=== PATIENT | male | born 1995 | race African-American/Black ===

== ENCOUNTER 2016-11-03 08:18 | Emergency (ER) | payer OTHER ==
[2016-11-03 08:24] VITALS: BP 134/90; PULSE 79; TEMP 98; BMI 26.7
[2016-11-03] MEDS ORDERED: IBUPROFEN 400 MG TABLET (FP) PO ONE (08:32)
[2016-11-03] MEDS ORDERED: IBUPROFEN 600 MG TABLET (FP) PO ONE (08:35)
--- NOTE | 2016-11-03 08:37 | PDOC ---
History of Present Illness - General Chief Complaint: Injury Stated Complaint: LEFT KNEE PAIN Time Seen by Provider: 11/03/16 08:20 History Source: Patient Exam Limitations: No Limitations - History of Present Illness Initial Comments: 11/03/16 08:33 21y M hx of several knee surgeries presents with L knee pain. The patient states that as he was going up the stairs this morning, he felt his L knee 'roll ' around with immediate pain. The pt states he fell backwards but didnt hurt himself without head injury, LOC, neck pain, back pain. Pt denies any numnbess/ tingling/weakness. Pt states his knee hurts at rest, ambulating and when bending it. No radiation of pain. PMD: Mayito Past History - Past Medical History Allergies/Adverse Reactions: Allergies Allergy/AdvReac Type Severity Reaction Status Date / Time No Known Allergies Allergy Verified 11/03/16 08:19 Home Medications: Ambulatory Orders NK [No Known Home Medication] 11/03/16 Other medical history: DENIES - Psycho/Social/Smoking Cessation Hx Anxiety: No Suicidal Ideation: No Smoking History: Never smoked Have you smoked in the past 12 months: No Information on smoking cessation initiated: No Hx Alcohol Use: No Drug/Substance Use Hx: No Substance Use Type: None Review of Systems - Review of Systems Able to Perform ROS?: Yes Comments:: 11/03/16 08:34 Constitutional - no reported Fever, Chills, Musculskelatal - +knee pain no reported back pain, joint swelling skin - no reported bruising, erythema, rash neurological: no reported headache, numbness, focal weakness, tingling, hematologic: no reported anemia, easy bruising, easy bleeding *Physical Exam - Vital Signs Last Vital Signs Temp Pulse Resp BP Pulse Ox 98 F 79 20 134/90 99 11/03/16 08:19 11/03/16 08:19 11/03/16 08:19 11/03/16 08:19 11/03/16 08:19 - Physical Exam Comments: 11/03/16 08:37 GENERAL: The patient is awake, alert, and fully oriented, Nontoxic - in no acute distress. HEAD: Normocephalic, atraumatic. EXTREMITIES: no focal bony tenderness mild tenderness to lateral aspects of knee no bruising/ecchymosis, skin breakdown +laxity on anterior drawer no pain/laxity on valgus/varus stress, no laxity noted on posterior drawer no lmitation of ROM on L hip, L foot SKIN: Warm, Dry, normal turgor, Medical Decision Making - Medical Decision Making 11/03/16 08:39 suspect ligamentous strain atraumatic, no bony tenderness, do no tfeel xray will be helpful will refer to ortho/pmd pt placed in knee immobilizer and crutches NSAIDS, Rest, elevat return precautions were discussed I discussed the physical exam findings, ancillary test results and final diagnoses with the patient. I answered all of the patient's questions. The patient was satisfied with the care received and felt comfortable with the discharge plan and treatment plan. The patient will call their primary care physician within 24 hours to arrange follow-up and will return to the Emergency Department with any new, persistent or worsening symptoms. *DC/Admit/Observation/Transfer Diagnosis at time of Disposition: Strain of knee Qualifiers: Encounter type: initial encounter Laterality: left Qualified Code(s): S86.912A - Strain of unspecified muscle(s) and tendon(s) at lower leg level, left leg, initial encounter - Discharge Dispostion Disposition: HOME Condition at time of disposition: Stable Admit: No - Referrals Referrals: Kaci Edmond MD [Staff Physician] - Jefe Beverly MD [Staff Physician] - - Patient Instructions Printed Discharge Instructions: DI for Knee Sprain Additional Instructions: Return to the emergency department immediately with ANY new, persistent or worsening symptoms. Avoid any strenous activity (such as basketball) and work especially if you will be in a position where you will be in danger until you follow up with your doctor. KEep your leg elevated and use an ice pack to mnimize swelling. Take ibuprofen (600mg three times daily) for pain. You MUST call and follow up with your primary care doctor and orthopedic surgeon in 3-4 days for further evaluation of your symptoms. Results were discussed with you. Please make sure your doctor reviews the results of your emergency evaluation. - Post Discharge Activity Work/School Note: Back to Work
== END 2016-11-03 08:50 | disposition home or self-care (01) ==
LOC: FER 08:18
DX: S86.912A Strain of unspecified muscle(s) and tendon(s) at lower leg level, left leg, initial encounter (principal); W10.9XXA Fall (on) (from) unspecified stairs and steps, initial encounter; Y93.89 Activity, other specified; Y92.9 Unspecified place or not applicable
CPT/HCPCS: 99282-25

== ENCOUNTER 2017-06-19 05:52 | Day surgery (SDC) | payer OTHER ==
[2017-06-18 09:56] VITALS: BMI 26.0
[2017-06-19] MEDS ORDERED: MIDAZOLAM HCL 2 MG/2 ML SINGLE DOSE VIAL ONE (06:42)
[2017-06-19] MEDS ORDERED: DEXAMETHASONE SOD PHOSPHATE/PF 10 MG/ML SDV ONE (06:42)
[2017-06-19] MEDS ORDERED: BUPIVACAINE HCL/PF (5 MG/ML) 30 ML VIAL IJ ONE (06:43)
[2017-06-19] MEDS ORDERED: PROPOFOL 20 ML ONE ×2 (07:02)
[2017-06-19] MEDS ORDERED: ceFAZolin SODIUM 1 GM VIAL ONE (08:14)
[2017-06-19] MEDS ORDERED: DEXAMETHASONE SOD PHOSPHATE 4 MG/1 ML VIAL ONE (08:14)
[2017-06-19] MEDS ORDERED: ONDANSETRON 4 MG/2 ML VIAL ONE ×2 (08:14→09:28)
[2017-06-19] MEDS ORDERED: oxyCODONE HCL 5 MG TABLET PO PRN (08:54)
[2017-06-19] MEDS ORDERED: ONDANSETRON 4 MG/2 ML VIAL IVPUSH PRN (08:54)
[2017-06-19] MEDS ORDERED: EPINEPHrine 1:1,000 1 MG/1 ML - 30ML VIAL (INJECTION) ONE (08:56)
[2017-06-19] MEDS ORDERED: LACTATED RINGERS SOLUTION 1,000 ML IV SCH (09:00)
[2017-06-19 11:42] VITALS: TEMP 97.4
[2017-06-19] MEDS ORDERED: oxyCODONE HCL 5 MG TABLET ONE (11:46)
[2017-06-19 12:20] VITALS: BP 132/62; PULSE 82
--- NOTE | 2017-06-21 23:43 | OP ---
DATE OF OPERATION: 06/19/2017 SURGEON: Tristian Vasquez MD FISH BUTCHER: BIBI Eastman PREOPERATIVE DIAGNOSIS: 1. Left knee anterior cruciate ligament tear. 2. Left knee mediolateral meniscal tear. 3. Left knee cartilage injury. 4. Left knee synovitis. POSTOPERATIVE DIAGNOSIS: 1. Left knee anterior cruciate ligament tear. 2. Left knee mediolateral meniscal tear. 3. Left knee cartilage injury. 4. Left knee synovitis. PROCEDURE: 1. Left knee arthroscopy with anterior cruciate ligament reconstruction using allograft, CPT code 80475. 2. Left knee arthroscopy with partial meniscectomy of mediolateral meniscus, CPT code 00960. 3. Left knee arthroscopy with chondroplasty, CPT code 52828. 4. Left knee arthroscopy with synovectomy including removal of medial plica, CPT code 23433. FINDINGS: 1. Medial meniscus body and posterior horn tear, minor. 2. Lateral meniscus posterior horn tear, central one-third, midbody to posterior horn. 3. Synovitis of patellofemoral and mediolateral notch. 4. Cartilage injury to the mediolateral joint. 5. Complete tear of the ACL. 6. Antegrade 1-2 cartilage injury to the lateral joint line. 7. Antegrade 2 cartilage injury to the lateral facet of patella. PROCEDURE: Informed consent was obtained. The patient came to the operating room, where the lower extremity was prepped and draped in a sterile fashion. A tourniquet was placed on the upper thigh, but not inflated. Using standard arthroscopic technique, a lateral incision and portal was made to allow for introduction of the camera into the suprapatellar bursa. This was then taken to the medial joint line, where under direct visualization, a medial incision and portal was made. Excessive synovium noted in the medial, lateral and patellofemoral and notch area was removed by an up-biter, shaver and Bovie cautery. This was found to bring in inflammatory tissue into the joint surface, a source of pain and dysfunction. Probing of the medial and lateral meniscus found tears, as described in the findings. These were removed with the up-biter and shaver and taken back to a stable rim. Grade 2 to 3 degenerative changes were treated with a chondroplasty, removing all flaking surfaces with low-setting Bovie along the periphery to prevent further flaking. Grade 4 changes, as noted, were treated with an abrasioplasty, creating a bleeding surface at the bone/cartilage interface. Aggressive debridement with shaver/yaneth created bleeding surface. Microfracture also done when indicated in findings Patient had a complete tear of the anterior cruciate ligament. Remnants of the ACL were removed and a lateral notchplasty was performed on the lateral femoral wall using a bur. Allograft was prepared on the back table and found to have good strength and tissue quality. Anteromedial incision was made on the anterior tibia, corresponding to the ACL inside-out graft. Incision was made in the anteromedial tibia followed by a beef needle to a central portion of the joint and a 10-mm reamer. Knee was flexed 90 degrees. The [id number] position was identified along the femur. A beef needle was placed through the anterior femur. This was followed by a 10-mm to a depth of 35 mm. The graft was passed through the tibial and femoral sites and was secured on the femoral side using an 8-mm x 25-mm metal interference screw. The knee was taken through range of motion. The graft had isometric positioning and no evidence of impingement. The knee was extended and posterior drawer was placed. A tibial screw, 9-mm x 20-mm metal interference screw, was placed. Camera was reintroduced in the knee. All loose debris was removed. ACL graft was found to have no evidence of impingement. Good positioning and good tension. All areas of the knee were once again reexamined. The knee was then drained and a single suture was placed in all portals in layered closure with 0 Vicryl, 2-0 Vicryl, and a 3-0 Prolene was used on the medial incision. A sterile dressing was placed and a splint was placed. The patient was transferred to the recovery room without complication. TRISTIAN VASQUEZ M.D. [id number]
== END 2017-06-19 12:23 | disposition home or self-care (01) ==
LOC: FASU 05:52
PROVIDERS: ATTEND Orthopaedic Surgery
PROC: 0SBD4ZZ Excision of Left Knee Joint, Percutaneous Endoscopic Approach (ICD-10-PCS; 2017-06-19)
PROC: 0SBD4ZZ Excision of Left Knee Joint, Percutaneous Endoscopic Approach (ICD-10-PCS; 2017-06-19)
PROC: 0SBD4ZZ Excision of Left Knee Joint, Percutaneous Endoscopic Approach (ICD-10-PCS; 2017-06-19)
PROC: 0MRP47Z Replacement of Left Knee Bursa and Ligament with Autologous Tissue Substitute, Percutaneous Endoscopic Approach (ICD-10-PCS; principal; 2017-06-19 07:30)
DX: S83.512A Sprain of anterior cruciate ligament of left knee, initial encounter (principal); S83.242A Other tear of medial meniscus, current injury, left knee, initial encounter; S83.282A Other tear of lateral meniscus, current injury, left knee, initial encounter; S83.8X2A Sprain of other specified parts of left knee, initial encounter; M65.862 Other synovitis and tenosynovitis, left lower leg; X58.XXXA Exposure to other specified factors, initial encounter; Y93.9 Activity, unspecified; Y92.9 Unspecified place or not applicable
CPT/HCPCS: 94760

== ENCOUNTER 2019-04-10 00:29 | Emergency (ER) | payer BC, OTHER ==
[2019-04-10 00:39] VITALS: TEMP 100.3; BMI 25.7
[2019-04-10] MEDS ORDERED: KETOROLAC TROMETHAMINE 30 MG/1 ML VIAL ONE (01:12)
[2019-04-10] MEDS ORDERED: KETOROLAC TROMETHAMINE 30 MG/1 ML VIAL IVPUSH ONE (01:18)
[2019-04-10] MEDS ORDERED: SODIUM CHLORIDE 0.9% 500 ML INFUS.BAG IV ONE ×2 (01:18→05:52)
[2019-04-10 01:58] LABS: BASO % 0.2 % (0-2.0); HEMATOCRIT 43.7 % (35.4-49); HEMOGLOBIN 14.7 GM/dL (11.7-16.9); MCH 29.1 pg (25.7-33.7); MCHC 33.5 g/dl (32.0-35.9); MEAN CELL VOLUME 86.6 fl (80-96); MEAN PLT VOLUME 10.4 fl (7.5-11.1); MONO % 11.2 % (3.8-10.2); NEUT % 85.6 % (42.8-82.8); PLATELET COUNT 171 K/MM3 (134-434); RBC 5.04 M/mm3 (4.00-5.60); RDW 12.6 % (11.9-15.9)
[2019-04-10 02:21] LABS: ALBUMIN 4.7 g/dl (3.4-5.0); BILIRUBIN,TOTAL 0.6 mg/dL (0.2-1); BLOOD UREA NITROGEN 12.3 mg/dL (7-18); CALCIUM 9.9 mg/dL (8.5-10.1); CREATININE 1.2 mg/dL (0.55-1.3); POTASSIUM 3.2 mmol/L (3.5-5.1); TOT PROT 7.6 g/dl (6.4-8.2)
[2019-04-10] MEDS ORDERED: MAGNESIUM SULF 50% (8.12 MEQ/2 ML-1 GM VIAL) IVPB ONE (02:25)
[2019-04-10] MEDS ORDERED: POTASSIUM CHLORIDE TABS 20 MEQ TABLET.ER (FP) PO ONE ×2 (02:25→02:37)
[2019-04-10] MEDS ORDERED: MAGNESIUM 1GM/D5W - 2 GM/200 ML IVPB IVPB ONE (02:37)
--- NOTE | 2019-04-10 03:22 | PDOC ---
Documentation entered by Roxie Arriola SCRIBE, acting as scribe for Isabelle Bryant MD. Isabelle Bryant MD: This documentation has been prepared by the Zeinab miller Nirvannie, SCRIBE, under my direction and personally reviewed by me in its entirety. I confirm that the documentation accurately reflects all work, treatment, procedures, and medical decision making performed by me. History of Present Illness - General Chief Complaint: Back Pain Stated Complaint: BACK PAIN Time Seen by Provider: 04/10/19 01:02 History Source: Patient Exam Limitations: No Limitations - History of Present Illness Initial Comments: 04/10/19 01:32 The patient is a 24 year old male, with no significant past medical history, who presents to the emergency department with 10/10 band-like back pain worsened with passive and active movements, nausea, vomiting, and concentrated urine. As per patients mother at bedside, he was diagnosed earlier today at Urgent Care with a URI and discharged on Cyclobenzaprine 5mg, Ibuprofen 650mg, and Benzonatate 200mg. Patients mother notes when ambulating he walks stiff secondary to pain, prompting his arrival to the ED. Mother notes, he has associated nausea, vomiting, cough, and decreased PO intake. He denies any recent fevers, chills, headache or dizziness. He denies any recent chest pain or shortness of breath. He denies any recent dysuria, frequency, urgency or hematuria. Allergies: NKDA Past History - Past Medical History Allergies/Adverse Reactions: Allergies Allergy/AdvReac Type Severity Reaction Status Date / Time No Known Allergies Allergy Verified 04/10/19 00:52 Home Medications: Ambulatory Orders Ibuprofen 600 mg PO Q8H PRN 04/10/19 Sulfamethoxazole/Trimethoprim [Bactrim Ds -] 1 tab PO BID #14 tablet 04/10/19 Anemia: No Asthma: No Cancer: No Cardiac Disorders: No CVA: No COPD: No CHF: No Dementia: No Diabetes: No GI Disorders: No Disorders: No HTN: No Hypercholesterolemia: No Liver Disease: No Seizures: No Thyroid Disease: No - Surgical History Abdominal Surgery: No Appendectomy: No Cardiac Surgery: No Cholecystectomy: No Lung Surgery: No Neurologic Surgery: No Orthopedic Surgery: Yes (LEFT KNEE 02/2014) - Psycho Social/Smoking Cessation Hx Smoking History: Never smoked Have you smoked in the past 12 months: Yes Number of Cigarettes Smoked Daily: 0 If you are a former smoker, when did you quit?: SMOKES OCCASIONAL MARIJUANA Hx Alcohol Use: No Drug/Substance Use Hx: No Substance Use Type: Marijuana Hx Substance Use Treatment: No Review of Systems - Review of Systems Able to Perform ROS?: Yes Comments:: 04/10/19 01:33 GENERAL/CONSTITUTIONAL: No fever or chills. No weakness. HEAD, EYES, EARS, NOSE AND THROAT: No change in vision. No ear pain or discharge. No sore throat. CARDIOVASCULAR: No chest pain or shortness of breath. RESPIRATORY: +Cough. No wheezing, or hemoptysis. GASTROINTESTINAL: +Nausea. +Vomiting. No diarrhea or constipation. GENITOURINARY: No dysuria, frequency, or change in urination. MUSCULOSKELETAL: +Back pain. No joint swelling or pain. No neck pain. SKIN: No rash. NEUROLOGIC: No headache, vertigo, loss of consciousness, or change in strength/ sensation. ENDOCRINE: No increased thirst. No abnormal weight change. HEMATOLOGIC/LYMPHATIC: No anemia, easy bleeding, or history of blood clots. ALLERGIC/IMMUNOLOGIC: No hives or skin allergy. All Other Systems: Reviewed and Negative *Physical Exam - Vital Signs Last Vital Signs Temp Pulse Resp BP Pulse Ox 100.3 F H 112 H 20 114/59 L 97 04/10/19 00:34 04/10/19 00:34 04/10/19 00:34 04/10/19 00:34 04/10/19 00:34 - Physical Exam 04/10/19 01:58 GENERAL: Awake, alert, and fully oriented, in no acute distress HEAD: No signs of trauma EYES: PERRLA, EOMI, sclera anicteric, conjunctiva clear ENT: Auricles normal inspection, hearing grossly normal, nares patent, oropharynx clear without exudates. Moist mucosa NECK: Normal ROM, supple, no lymphadenopathy, JVD, or masses LUNGS: Breath sounds equal, clear to auscultation bilaterally. No wheezes, and no crackles HEART: Regular rate and rhythm, normal S1 and S2, no murmurs, rubs or gallops ABDOMEN: Soft, nontender, normoactive bowel sounds. No guarding, no rebound. No masses BACK: No midline tenderness. EXTREMITIES: Normal range of motion, no edema. No clubbing or cyanosis. No cords, erythema, or tenderness NEUROLOGICAL: Cranial nerves II through XII grossly intact. Normal speech, normal gait. Motor and sensation intact SKIN: Warm, Dry, normal turgor, no rashes or lesions noted ED Treatment Course - LABORATORY CBC & Chemistry Diagram: 04/10/19 01:17 04/10/19 01:17 - Medications Given in the ED: ED Medications Discontinued Medications Generic Name Dose Route Start Last Admin Trade Name Rangel PRN Reason Stop Dose Admin Ketorolac Tromethamine 30 mg 04/10/19 01:18 04/10/19 01:30 Toradol Injection - IVPUSH 04/10/19 01:19 30 mg ONCE ONE Administration Sodium Chloride 1,000 ml 04/10/19 01:18 04/10/19 01:30 Normal Saline - IV 04/10/19 01:19 1,000 ml ONCE ONE Administration Medical Decision Making - Medical Decision Making 04/10/19 02:14 Pt is anxious and broke out in a cold sweat. Tachy and low grade temp in the ER. Pt is healthy and has no PMHx and he likely has viral illness vs strep throat. vs kidney stone. Pt states that he has back pain. He is writhing in the bed. His mom states that her brother (pt's uncle) has a hx of kidney stones. 04/10/19 03:22 Labs are normal Pt has a K of 3,2 and he will be repleted with K and Mg 04/10/19 03:54 Pt complaining of back pain again. He will get a spiral CT to r/o stones. We are still awaiting UA. Pt refusing opiods; he will get ofirmev. 04/10/19 05:52 Referring Physician: KASANDRA GONZALEZ Patient Name: DALTON VOSS THIS IS A PRELIMINARY REPORT FROM [facility] DATE OF SERVICE: 2019-04-10 04:25:32 IMAGES: [id number] EXAM: CT ABDOMEN WITHOUT CONTRAST AND CT PELVIS WITHOUT CONTRAST HISTORY: 24-Year-Old Male Back Pain Assess For a Stone. COMPARISON: None. FINDINGS: No basilar infiltrate. Lack of intravenous contrast limits this exam. Noncontrast evaluation liver gallbladder pancreas spleen and adrenal glands appear unremarkable. Mildly prominent extrarenal pelvis bilaterally. No stones in the ureters. No stones in the bladder. Small amount of oral contrast. Non-intravenous contrast evaluation of the stomach small bowel and appendix appear unremarkable. No appendicitis. Mild diverticulosis without diverticulitis. Mild nonspecific bladder wall thickening may be due to infectious cystitis. Prostate appears unremarkable. No free air. No free fluid. No abscess. Mild degenerative disc disease. Subcentimeter mesenteric lymph nodes may be due to mesenteric adenitis. Bilateral groin nonspecific groin lymph nodes may be reactive. IMPRESSION: Mildly prominent extrarenal pelvis bilaterally. No stones in the ureters. No stones in the bladder. Mild nonspecific bladder wall thickening may be due to infectious cystitis. Mild diverticulosis without diverticulitis Subcentimeter mesenteric lymph nodes may be due to mesenteric adenitis. Bilateral groin nonspecific lymph nodes may be reactive. This CT exam was performed using one or more of the following dose reduction techniques: automated exposure control, adjustment of the mA and/or kV according to patient size, use of iterative reconstruction technique. Discharge - Discharge Information Problems reviewed: Yes Clinical Impression/Diagnosis: Cystitis Condition: Improved Disposition: HOME - Admission No - Additional Discharge Information Prescriptions: Sulfamethoxazole/Trimethoprim [Bactrim Ds -] 1 tab PO BID #14 tablet - Follow up/Referral Referrals: Aidan Ghotra MD [Staff Physician] - - Patient Discharge Instructions Patient Printed Discharge Instructions: Acute Cystitis - Post Discharge Activity
[2019-04-10] MEDS ORDERED: ACETAMINOPHEN 1000 MG/100 ML VIAL (NON FORMULARY) IVPB ONE (03:50)
[2019-04-10] MEDS ORDERED: ACETAMINOPHEN INJECTION 100 ML IVPB ONE (03:50)
[2019-04-10 03:56] LABS: EPI CELLS 4.8 /HPF (0-5/HPF); HYALINE CASTS 9 /lpf (0-8); PH,URINE 6.5 (5.0-8.0); URINE APPEARANCE CLEAR; URINE BACTERIA 3.8 /hpf (NEGATIVE); URINE BILIRUBIN NEGATIVE (NEGATIVE); URINE COLOR YELLOW; URINE GLUCOSE (UA) NEGATIVE (NEGATIVE); URINE KETONE 2+ (NEGATIVE); URINE LEUK ESTERASE 1+ (NEGATIVE); URINE NITRITE NEGATIVE (NEGATIVE); URINE PROTEIN TRACE (NEGATIVE); URINE RBC 0 /hpf (0-4); URINE WBC 8 /hpf (0-5)
[2019-04-10 06:48] VITALS: BP 125/66; PULSE 98
[2019-04-10] MEDS ORDERED: SULFAMETHOXAZOLE/TRIMETHOPRIM 800MG/160MG D.S. TABLET PO ONE (08:01)
[2019-04-10] MEDS ORDERED: SULFAMETHOXAZOLE/TRIMETHOPRIM 800MG/160MG D.S. TABLET ONE (08:04)
== END 2019-04-10 08:24 | disposition home or self-care (01) ==
LOC: JER 00:29
PROC: 3E033NZ Introduction of Analgesics, Hypnotics, Sedatives into Peripheral Vein, Percutaneous Approach (ICD-10-PCS; principal; 2019-04-10)
PROC: 3E0333Z Introduction of Anti-inflammatory into Peripheral Vein, Percutaneous Approach (ICD-10-PCS; 2019-04-10)
PROC: 3E033GC Introduction of Other Therapeutic Substance into Peripheral Vein, Percutaneous Approach (ICD-10-PCS; 2019-04-10)
DX: N30.00 Acute cystitis without hematuria (principal); E87.6 Hypokalemia
CPT/HCPCS: 36415; 71046-TC-FY; 74176-TC; 80053; 81003; 83605; 85025; 87070; 87880; 99282-25; J0131

== ENCOUNTER 2020-09-18 09:53 | Emergency (ER) | payer OTHER, BC ==
[2020-09-18 10:12] VITALS: BP 117/75; PULSE 88; TEMP 98.4; BMI 28.3
[2020-09-18] MEDS ORDERED: IBUPROFEN 600 MG TABLET (FP) PO ONE ×2 (10:33→10:56)
[2020-09-18] MEDS ORDERED: LIDOCAINE 5% TOPICAL PATCH TP ONE (10:34)
[2020-09-18] MEDS ORDERED: LIDOCAINE 5% TOPICAL PATCH ONE (10:55)
== END 2020-09-18 12:21 | disposition home or self-care (01) ==
LOC: JERFT 09:53
DX: M54.2 Cervicalgia (principal); M25.562 Pain in left knee; M54.5 Low back pain
CPT/HCPCS: 72040-TC; 72100-TC-FY; 73562-TC-LT-FY; 73562-TC-RT-FY; 99285-25